=== PATIENT | female | born 1960 | race Caucasian/White ===

== ENCOUNTER 2024-05-11 09:44 | Emergency (ER) | payer MEDICARE, OTHER ==
[~2024-05-11] VITALS: Ht 157.5 cm; Wt 78.8 kg
[2024-05-11 09:49] VITALS: BP 147/71; TEMP 96.9; O2SAT 97
[2024-05-11] MEDS ORDERED: THERTAB52 PO (10:02)
[2024-05-11] MEDS ORDERED: FURO40TA2 PO (10:02)
[2024-05-11] MEDS ORDERED: ESSETAB4 PO (10:02)
[2024-05-11] MEDS ORDERED: B-1100TA2 PO (10:02)
[2024-05-11] MEDS ORDERED: OMEP10CASR PO (10:02)
[2024-05-11] MEDS ORDERED: PERP8TAB25 PO (10:02)
[2024-05-11] MEDS ORDERED: DILT240C82 PO (10:02)
[2024-05-11] MEDS ORDERED: POTA-151 PO (10:02)
[2024-05-11] MEDS ORDERED: MIRT1TAB16 PO (10:02)
[2024-05-11] MEDS ORDERED: SODI1TAB12 PO (10:02)
[2024-05-11] MEDS ORDERED: ACET1TAB55 PO (10:02)
[2024-05-11] MEDS ORDERED: ELIQ5TAB PO (10:02)
[2024-05-11 11:02] LABS: HEMATOCRIT 40.1 % (36.0-47.0); HEMOGLOBIN 14.3 g/dl (12.0-15.5); MEAN CORPUSCULAR HEMOGLOBIN 32.9 pg (27.0-33.0); MEAN CORPUSCULAR HGB CONC 35.7 g/dl (32.0-36.5); MEAN CORPUSCULAR VOLUME 92.2 fl (80.0-96.0); PLATELET COUNT, AUTOMATED 230 10^3/uL (150-450); RED BLOOD COUNT 4.35 10^6/uL (4.00-5.40); WHITE BLOOD COUNT 5.6 10^3/uL (4.0-10.0)
[2024-05-11 11:37] LABS: ETHYL ALCOHOL (ETHANOL) < 0.003 % (0.000-0.010)
[2024-05-11 11:39] LABS: SALICYLATE LEVEL < 3.0 MG/DL (<30)
[2024-05-11 11:41] LABS: THYROID STIMULATING HORMONE 2.598 uIU/ML (0.55-4.78)
[2024-05-11 11:45] LABS: ALBUMIN 3.8 G/DL (3.2-5.2); ALKALINE PHOSPHATASE 121 U/L (46-116); ALT/SGPT 22 U/L (7.0-40); AST/SGOT 16 U/L (<34); BILIRUBIN,DIRECT 0.3 MG/DL (<0.4); BILIRUBIN,TOTAL 0.8 MG/DL (0.3-1.2); BLOOD UREA NITROGEN < 5 MG/DL (9-23); CALCIUM LEVEL 10.4 MG/DL (8.3-10.6); CARBON DIOXIDE LEVEL 26 MMOL/L (20-31); CHLORIDE LEVEL 99 MMOL/L (98-107); CREATININE FOR GFR 0.64 MG/DL (0.55-1.30); GLOMERULAR FILTRATION RATE > 60.0 (>45); GLUCOSE, FASTING 134 MG/DL (74-106); POTASSIUM SERUM 3.8 MMOL/L (3.5-5.1); SODIUM LEVEL 130 MMOL/L (136-145); TOTAL PROTEIN 7.6 G/DL (5.7-8.2)
[2024-05-11] MEDS ORDERED: OMEP-173 PO (12:32)
[2024-05-11] MEDS ORDERED: MIRT-10 PO (12:32)
[2024-05-11] MEDS ORDERED: HOME MED LIST COMPLETE! XX SCH (12:35)
[2024-05-11 12:38] LABS: BARBITURATES URINE NEGATIVE (NEGATIVE); COCAINE METABOLITE URINE NEGATIVE (NEGATIVE); METHADONE URINE NEGATIVE (NEGATIVE); OPIATES URINE NEGATIVE (NEGATIVE); PHENCYCLIDINE URINE NEGATIVE (NEGATIVE)
[2024-05-11 12:39] LABS: AMPHETAMINES LEVEL URINE NEGATIVE (NEGATIVE); BENZODIAZEPINES URINE NEGATIVE (NEGATIVE); CANNABINOIDS URINE NEGATIVE (NEGATIVE)
== END 2024-05-11 12:48 | disposition home or self-care (01) ==
LOC: M ED 09:44
DX: F25.9 Schizoaffective disorder, unspecified (principal); I48.91 Unspecified atrial fibrillation; Z79.1 Long term (current) use of non-steroidal anti-inflammatories (NSAID); Z79.01 Long term (current) use of anticoagulants; Z79.899 Other long term (current) drug therapy

== ENCOUNTER → 2024-05-24 | Outpatient (REF) | payer MEDICARE, MEDICAID ==
[~2024-05-24] MED LIST: ACET1TAB55 PO; B-1100TA2 PO; DILT240C82 PO; ELIQ5TAB PO; ESSETAB4 PO; FURO40TA2 PO; MIRT-10 PO; MIRT1TAB16 PO; OMEP-173 PO; OMEP10CASR PO; PERP8TAB25 PO; POTA-151 PO; SODI1TAB12 PO; THERTAB52 PO
[2024-05-24 14:39] LABS: BASO % 0.9 % (0.0-1.0); EOS # 0.2 10^3/uL (0.0-0.5); EOS % 3.3 % (0.0-3.0); HEMATOCRIT 40.6 % (36.0-47.0); HEMOGLOBIN 13.7 g/dl (12.0-15.5); LYMPH # 0.9 10^3/uL (1.5-5.0); LYMPH % 19.2 % (24.0-44.0); MEAN CORPUSCULAR HEMOGLOBIN 32.6 pg (27.0-33.0); MEAN CORPUSCULAR HGB CONC 33.7 g/dl (32.0-36.5); MEAN CORPUSCULAR VOLUME 96.7 fl (80.0-96.0); MONO # 0.5 10^3/uL (0.0-0.8); MONO % 10.4 % (2.0-8.0); NEUTROPHILS % 65.5 % (36.0-66.0); PLATELET COUNT, AUTOMATED 228 10^3/uL (150-450); WHITE BLOOD COUNT 4.5 10^3/uL (4.0-10.0)
[2024-05-24 14:48] LABS: HEMOGLOBIN A1c 5.6 % (4.0-6.0)
[2024-05-24 15:06] LABS: ALBUMIN 3.5 G/DL (3.2-5.2); ALKALINE PHOSPHATASE 113 U/L (46-116); ALT/SGPT 35 U/L (7.0-40); AST/SGOT 18 U/L (<34); BILIRUBIN,TOTAL 0.5 MG/DL (0.3-1.2); BLOOD UREA NITROGEN 10 MG/DL (9-23); CALCIUM LEVEL 10.1 MG/DL (8.3-10.6); CARBON DIOXIDE LEVEL 30 MMOL/L (20-31); CHLORIDE LEVEL 98 MMOL/L (98-107); CHOLESTEROL LEVEL 185 MG/DL (<200); CHOLESTEROL RISK RATIO 2.42 (<5); CREATININE FOR GFR 0.82 MG/DL (0.55-1.30); GLOMERULAR FILTRATION RATE > 60.0 (>45); GLUCOSE, FASTING 103 MG/DL (74-106); HDL CHOLESTEROL 76.2 MG/DL (>40); LDL CHOLESTEROL 94.6 MG/DL (<100); MAGNESIUM LEVEL 1.8 MG/DL (1.8-2.4); NON-HDL-C 108.8 MG/DL; POTASSIUM SERUM 4.3 MMOL/L (3.5-5.1); SODIUM LEVEL 134 MMOL/L (136-145); TOTAL PROTEIN 7.2 G/DL (5.7-8.2); TRIGLYCERIDES LEVEL 71 MG/DL (<150)
== END ==
LOC: M LAB REF 12:46
PROVIDERS: ATTEND Nurse Practitioner Family
DX: E66.9 Obesity, unspecified (principal); E55.9 Vitamin D deficiency, unspecified

== ENCOUNTER → 2024-12-20 | Outpatient (REF) | payer MEDICARE ==
[2024-12-20 14:26] LABS: ALBUMIN 3.8 G/DL (3.2-5.2); ALKALINE PHOSPHATASE 119 U/L (35-104); ALT/SGPT 20 U/L (7.0-40); AST/SGOT 16 U/L (<34); BILIRUBIN,TOTAL 0.5 MG/DL (0.3-1.2); BLOOD UREA NITROGEN 10 MG/DL (9-23); CALCIUM LEVEL 9.7 MG/DL (8.3-10.6); CARBON DIOXIDE LEVEL 28 MMOL/L (20-31); CHLORIDE LEVEL 98 MMOL/L (98-107); CHOLESTEROL LEVEL 174 MG/DL (<200); CHOLESTEROL RISK RATIO 2.38 (<5); CREATININE FOR GFR 0.74 MG/DL (0.55-1.30); GLOMERULAR FILTRATION RATE > 90.0 (>45); GLUCOSE, FASTING 145 MG/DL (74-106); LDL CHOLESTEROL 82.4 MG/DL (<100); MAGNESIUM LEVEL 1.8 MG/DL (1.8-2.4); POTASSIUM SERUM 3.2 MMOL/L (3.5-5.1); SODIUM LEVEL 134 MMOL/L (136-145); TOTAL PROTEIN 7.5 G/DL (5.7-8.2); TRIGLYCERIDES LEVEL 93 MG/DL (<150)
[2024-12-20 14:27] LABS: THYROID STIMULATING HORMONE 1.518 uIU/ML (0.55-4.78)
[2024-12-20 14:28] LABS: BASO # 0.1 10^3/uL (0.0-0.2); BASO % 0.7 % (0.0-1.0); EOS % 0.4 % (0.0-3.0); HEMATOCRIT 40.3 % (36.0-47.0); HEMOGLOBIN 13.7 g/dl (12.0-15.5); LYMPH # 1.3 10^3/uL (1.5-5.0); LYMPH % 16.5 % (24.0-44.0); MEAN CORPUSCULAR HEMOGLOBIN 32.2 pg (27.0-33.0); MEAN CORPUSCULAR VOLUME 94.8 fl (80.0-96.0); MONO # 0.5 10^3/uL (0.0-0.8); MONO % 6.2 % (2.0-8.0); NEUTROPHILS # 6.1 10^3/uL (1.5-8.5); NEUTROPHILS % 75.7 % (36.0-66.0); PLATELET COUNT, AUTOMATED 285 10^3/uL (150-450); RED BLOOD COUNT 4.25 10^6/uL (4.00-5.40); WHITE BLOOD COUNT 8.1 10^3/uL (4.0-10.0)
[2024-12-20 15:10] LABS: HEMOGLOBIN A1c 5.6 % (4.0-6.0)
== END ==
LOC: M LAB REF 13:31
PROVIDERS: ATTEND Nurse Practitioner Family
DX: E66.811 Obesity, class 1 (principal); E07.9 Disorder of thyroid, unspecified

== ENCOUNTER → 2025-02-20 | Outpatient (CLI) | payer MEDICARE ==
[2025-02-20 11:58] LABS: BASO # 0.0 10^3/uL (0.0-0.2); BASO % 0.6 % (0.0-1.0); EOS # 0.0 10^3/uL (0.0-0.5); EOS % 0.6 % (0.0-3.0); LYMPH # 0.8 10^3/uL (1.5-5.0); LYMPH % 13.1 % (24.0-44.0); MONO # 0.4 10^3/uL (0.0-0.8); MONO % 6.7 % (2.0-8.0); NEUTROPHILS # 5.0 10^3/uL (1.5-8.5); NEUTROPHILS % 78.5 % (36.0-66.0); PLATELET COUNT, AUTOMATED 250 10^3/uL (150-450)
[2025-02-20 12:13] LABS: INR 1.1
[2025-02-20 12:25] LABS: ALT/SGPT 13 U/L (7.0-40); AST/SGOT 15 U/L (<34); CALCIUM LEVEL 9.8 MG/DL (8.3-10.6); CARBON DIOXIDE LEVEL 25 MMOL/L (20-31); CHLORIDE LEVEL 95 MMOL/L (98-107); CREATININE FOR GFR 0.69 MG/DL (0.55-1.30); GLOMERULAR FILTRATION RATE > 90.0 (>45); POTASSIUM SERUM 4.1 MMOL/L (3.5-5.1); SODIUM LEVEL 128 MMOL/L (136-145)
== END ==
LOC: M WUC 10:32
PROVIDERS: ATTEND Nurse Practitioner Family
DX: Z95.0 Presence of cardiac pacemaker (principal); I44.1 Atrioventricular block, second degree; I48.0 Paroxysmal atrial fibrillation